=== PATIENT | male | born 1945 | race Caucasian/White ===

== ENCOUNTER 2018-02-25 08:55 | Day surgery (SDC) | payer MEDICARE, OTHER ==
[2018-02-25] MEDS ORDERED: IV LACTATED RINGERS SOLUTION 1,000 ML BAG IV ONE (08:56)
[2018-02-25] MEDS ORDERED: PROPOFOL 200 MG/20 ML BOTTLE IV ONE (08:56)
[2018-02-25] MEDS ORDERED: LIDOCAINE HCL 2% 20 ML VIAL MC ONE (08:56)
[2018-02-25] MEDS ORDERED: LIDOCAINE 1%-EPI 1:100,000 20 ML VIAL ONE (08:59)
[2018-02-25] MEDS ORDERED: BUPIVACAINE PF 0.5% 30 ML VIAL ONE (08:59)
[2018-02-25] MEDS ORDERED: BACITRACIN ZINC OINT 15 GM TUBE ONE (09:00)
[2018-02-25 10:05] LABS: *BILIRUBIN,URIN NEGATIVE (NEGATIVE); *BLOOD, URINE NEGATIVE (NEGATIVE); *CLARITY,URINE CLEAR (CLEAR); *COLOR,URINE YELLOW (YELLOW); *KETONES,URINE NEGATIVE (NEGATIVE); *PROTEIN,URINE NEGATIVE (NEGATIVE); LEUKOCYTE ESTERASE ,URINE NEGATIVE (NEGATIVE); NITRITE, URINE NEGATIVE (NEGATIVE); PH,URINE 8.5 (5.0-8.0); UGLUCOSE NEGATIVE (NEGATIVE)
[2018-02-25 10:10] LABS: RBC,URINE NONE SEEN /HPF (0-3); WBC,URINE NONE SEEN /HPF (0-3)
[2018-02-25 10:11] LABS: BACTERIA,URINE NONE SEEN /HPF (NONE SEEN); SQUAMOUS EPITHELIAL CELL,UR NONE SEEN /HPF (NONE SEEN)
== END 2018-02-25 12:45 | disposition home or self-care (01) ==
LOC: DS 08:55
PROVIDERS: ATTEND Surgery
DX: I25.10 Atherosclerotic heart disease of native coronary artery without angina pectoris (principal); K62.89 Other specified diseases of anus and rectum; D64.9 Anemia, unspecified; R63.4 Abnormal weight loss; R19.4 Change in bowel habit; Z95.5 Presence of coronary angioplasty implant and graft; I25.5 Ischemic cardiomyopathy; I34.0 Nonrheumatic mitral (valve) insufficiency; I73.9 Peripheral vascular disease, unspecified; J44.9 Chronic obstructive pulmonary disease, unspecified; E78.5 Hyperlipidemia, unspecified; Z87.891 Personal history of nicotine dependence
CPT/HCPCS: 45380; 71045; 81001; 82962; 88305; J3490; J7120 ×2; A4217; A4663